=== PATIENT | female | born 1945 | race Caucasian/White ===

== ENCOUNTER → 2016-11-22 | Day surgery (SDC) | payer MEDICARE, OTHER ==
[~2016-11-22] MED LIST: ACID REDUCER150 MG PO; AMLODIPINE BESYL5 MG PO; B COMPLEX1 TAB PO; CLARITIN10 M3; FISH OIL 1,4001 EACH PO; LASIX20 MG PO; LOTENSIN20 MG PO; OMEGA XL; OMEGA-3 EC SOF1 EACH PO; OMEPRAZOLE20 M1 PO; OSTEO BI-FLEX1 EAC3 PO; OSTEO BI-FLEX1 EAC4; POTASSIUM99 M2 PO; VITAMIN E400 UNI5 PO
--- NOTE | ~2016-11-22 | OR ---
Unit #: [id number] #: [id number] Patient: ARMINDA JADE [id number] [address] [place], [place] [address] [id number] O MR#: [id number] NAME: ARMINDA JADE ROOM: Date of Procedure: 11/22/2016 Admission Date: 11/22/2016 Surgeon: Jony Badillo Jr., M.D. : 1945 Attending Physician: Jony Badillo Jr., M.D. Primary Care Physician: Lexii Coleman A.P.R.N. PROCEDURE OPERATIVE NOTE PREOPERATIVE DIAGNOSIS Strong family history of colon cancer, rule out occult malignancy, rule out polyps. POSTOPERATIVE DIAGNOSIS Small 1-2 mm hemorrhagic polyp of the sigmoid colon at 30 cm and a few diverticula on the left colon and only a fair prep with some liquid stool throughout the entire length of the colon. PROCEDURE PERFORMED Flexible colonoscopy to the distal ileum with biopsy of a small polyp at 30 cm. ANESTHESIA MAC anesthesia. INDICATION FOR PROCEDURE Patient is a 71-year-old white female with a very strong family history of colon cancer who gets intermittent colonoscopy approximately every three years. It has been over three years since her last scope. She is brought in at this time for colonoscopy at her request. She has had her prep at home. She understands the procedure, including the risk, including that of perforation, bleeding and consents. PROCEDURE The patient was positioned in Castellon position with left side down. After being given MAC anesthesia, digital rectal examination was performed, which revealed no palpable mass or tenderness. No blood or stool within the rectal ampulla. There were a few external hemorrhoids present. The Olympus colonoscope was advanced into the anal canal up the rectum and retroflexed down to the area of the anorectal region. There was no evidence of any fissures. No significant internal hemorrhoids. The scope was then straightened and advanced up into the rectosigmoid area. In the sigmoid at approximately 30 cm there was a small hemorrhagic polyps approximately 1-2 mm in diameter. It was removed with two bites with a cold biopsy forcep basically without bleeding. The scope was then advanced up into the proximal sigmoid and descending colon areas where there were a few diverticula without evidence of diverticulitis. The scope was then advanced around the splenic flexure and the transverse colon, around hepatic flexure and ascending colon, down in the area of the cecum. The light from the tip of the scope could be seen transilluminating through right lower quadrant abdominal wall area. The Unit #: [id number] #: [id number] Patient: ARMINDA JADE scope was advanced up the distal ileum approximately 10 to 12 inches. There was no evidence of any ileitis or inflammatory bowel disease. The scope was slowly removed. There was liquid stool throughout their entire length of the colon that may have obscured a small polyp but no gross abnormalities except for the small polyp in the sigmoid and some diverticulosis. There were no tumors, cancer, or AVM. No evidence of any colitis or acute diverticulitis. The caliber of the colon appeared normal throughout without evidence of narrowing or obstruction. The scope was removed. The patient tolerated the procedure well. Discharged in satisfactory condition. Dictated by... Jony Badillo Jr., MNorm. VAMSHI/jassi TD: 11/23/2016 06:27 JOB #: [id number] PROCEDURE OPERATIVE NOTE Page 1 of 1 X Jony Badillo MD X PROCEDURE OPERATIVE NOTE
== END | disposition home or self-care (01) ==
LOC: COPS 11:20
PROVIDERS: Surgery
PROC: 0DBN8ZX Excision of Sigmoid Colon, Via Natural or Artificial Opening Endoscopic, Diagnostic (ICD-10-PCS; principal; 2016-11-22 13:30)
DX: Z12.11 Encounter for screening for malignant neoplasm of colon (principal); Z80.0 Family history of malignant neoplasm of digestive organs; D12.5 Benign neoplasm of sigmoid colon; K64.4 Residual hemorrhoidal skin tags; K57.30 Diverticulosis of large intestine without perforation or abscess without bleeding; K21.9 Gastro-esophageal reflux disease without esophagitis; I12.9 Hypertensive chronic kidney disease with stage 1 through stage 4 chronic kidney disease, or unspecified chronic kidney disease; N18.9 Chronic kidney disease, unspecified; G47.30 Sleep apnea, unspecified; E66.9 Obesity, unspecified; Z68.42 Body mass index [BMI] 45.0-49.9, adult; M54.9 Dorsalgia, unspecified; Z79.899 Other long term (current) drug therapy; Z98.51 Tubal ligation status; Z87.898 Personal history of other specified conditions; Z82.49 Family history of ischemic heart disease and other diseases of the circulatory system; Z88.5 Allergy status to narcotic agent
CPT/HCPCS: 88305